=== PATIENT | female | born 1980 | race Caucasian/White ===

== ENCOUNTER 2022-11-05 20:42 | Inpatient (IN) | payer OTHER, SELFPAY ==
[2022-11-05 20:44] VITALS: BP 166/83; PULSE 91; RESP 18; TEMP 37; O2SAT 99; BMI 22.6
--- NOTE | 2022-11-05 20:47 | ED.GENADULT ---
HPI - General Adult General Chief complaint: Psychiatric Symptoms Stated complaint: SI/seeking help Time Seen by Provider: 11/05/22 22:01 Source: patient Mode of arrival: ambulatory Limitations: no limitations History of Present Illness HPI narrative: Patient with history of depression on gabapentin and Zoloft been depressed lately more than usual no significant triggering factor feels suicidal with a plan to cut herself or hang herself. No history of substance abuse except THC , Related Data Home Medications Medication Instructions Recorded Confirmed clonazepam 1 mg tablet 1 mg PO BID PRN Anxiety 11/05/22 11/05/22 gabapentin 800 mg tablet 800 mg PO TID 11/05/22 11/05/22 prazosin 2 mg capsule 6 mg PO BEDTIME 11/05/22 11/05/22 sertraline 100 mg tablet 200 mg PO QAM 11/05/22 11/05/22 Allergies Allergy/AdvReac Type Severity Reaction Status Date / Time levofloxacin [From Levaquin] Allergy Unknown Swelling Verified 06/01/22 16:03 Review of Systems Review of Systems: Yes all other systems are reviewed and are negative [facility] Past Medical History Medical History (Updated 11/08/22 @ 22:10 by Magalis Moon APRN) PTSD (post-traumatic stress disorder) Social History Social History Household Members: Family Housing: House Do you presently have visiting nurse or other home services: No Patient Tobacco Use Status: Current everyday Tobacco user Tobacco use type: Cigarette Cigarette Packs Per Day: 0.25 Cigarettes Per Day: 5.0 Years Smoked: 22 Smoked in Last 30 Days: Yes e-Cigarette/Vaping Use: Never Used Patient Interested in Nicotine Replacement: Yes Patient Given Instructions on How to Stop Smoking: Yes Date Education Initiated: 11/06/22 Second Hand Smoke Exposure: No Use of substances other than those prescribed or required for medical reasons: Yes Substance Use Type: Marijuana and Caffiene Substance Use Frequency: Daily Last Used Substance: Just Prior to Admission Currently Displaying Signs/Symptoms of Drug Intoxication Withdrawal: No Any prior treatment program specific to substance use: No Have you been hit, kicked, punched, or otherwise hurt by someone within the past year? If so, by whom?: No Do you feel safe in your current relationship?: No Current Relationship Is there a partner from a previous relationship who is making you feel unsafe now?: No Are you made to feel afraid or neglected: Yes (Made to feel lesser than by my Mother) Spiritual Healthcare Practices: none Jew Healthcare Practices: none Cultural Healthcare Practices: none Advance Directives: No Advance Directives Information Provided: Yes Healthcare Proxy: No Guardian: No Do you have thoughts of harming others: None Do you have a plan to hurt others: No Plan Recently lost weight without trying: No Eating poorly because of decreased appetite: No Nutrition Risks: No Nutritional Risk Patient : No : No Poor oral hygiene: No service: No Sexual orientation: Straight/Heterosexual Physical Exam ED Vital Signs: Vital Signs - 24 hr 11/05/22 20:44 11/06/22 06:29 Temperature 98.6 F 98.6 F Pulse Rate 91 53 Respiratory Rate 18 15 Blood Pressure 166/83 H 101/64 Pulse Oximetry 99 96 Oxygen Delivery Method Room Air Room Air BMI result Body Mass Index 22.6 Appearance: Alert. Oriented X3. No acute distress. Eyes: PERRLA, No Nystagmus ENT: Pharynx normal. Oral Mucosa moist Neck: Normal inspection. Neck supple. CVS: Normal heart rate and rhythm. Pulses normal. Respiratory: No respiratory distress. Equal air entry bilateral, no wheezing/rales/rhonchi Abdomen: Soft and nontender. Bowel sounds are present, no mass palpable, no CVA tenderness Skin: Skin warm and dry. Normal skin color. Normal skin turgor. Extremities: No lower extremity edema. No calf tenderness psych: Depressed tearful anxious feels suicidal no hallucinations or delusion Neuro: Oriented X 3. No motor deficit. No sensory deficit.No cerebellar signs , cranial nerves II-XII intact Course Course Course Narrative: RME: 42 yold female presents to the ED SUicidal ideation and plan to hang herself. patient is depressed. labs and consult care team placed. Reevaluation(s) Reevaluation #1: Patient is pending care team evaluation. He she has suicidal ideation with a plan to hang herself. She tested positive for THC. Medical reconciliation has been performed in ordered medications. Patient will remain in physician observation. Time: 08:07 Medications Administered Generic Name Dose Route Start Last Admin Trade Name Freq PRN Reason Stop Dose Admin Acetaminophen 650 mg 11/06/22 20:02 11/12/22 20:21 Acetaminophen 325 Mg Tablet PO 650 mg Q6H PRN Administration Headache/Pain Mild Scale (1-3) Aripiprazole 2 mg 11/08/22 09:00 11/14/22 09:22 Aripiprazole 2 Mg Tablet PO 2 mg DAILY COREEN Administration Bisacodyl 10 mg 11/10/22 13:30 11/12/22 20:21 Bisacodyl 5 Mg Tablet.Dr PO 10 mg DAILY PRN Administration Constipation Clonazepam 0.5 mg 11/12/22 15:56 11/14/22 09:22 Clonazepam 0.5 Mg Tablet PO 0.5 mg BID PRN Administration Anxiety Docusate Sodium 100 mg 11/10/22 21:00 11/14/22 09:22 Docusate Sodium 100 Mg Capsule PO 100 mg BID COREEN Administration Gabapentin 800 mg 11/06/22 09:00 11/14/22 09:22 Gabapentin 400 Mg Capsule PO 800 mg TID COREEN Administration Hydroxyzine HCl 25 mg 11/06/22 20:02 11/10/22 18:14 Hydroxyzine Hcl 25 Mg Tablet PO 25 mg Q6H PRN Administration Anxiety Ibuprofen 800 mg 11/10/22 13:35 11/12/22 15:49 Ibuprofen 800 Mg Tablet PO 800 mg Q8H PRN Administration Pain, Mild (Pain Scale 1-3) Magnesium Hydroxide 30 ml 11/06/22 20:02 11/11/22 18:57 Milk Of Magnesia 30 Ml Oral.Susp PO 30 ml DAILY PRN Administration Constipation Nicotine 14 mg 11/08/22 09:00 11/14/22 10:56 Nicotine 14 Mg Patch.Td24 TRANSDERMA Not Given DAILY COREEN Nicotine Polacrilex 2 mg 11/07/22 12:26 11/14/22 00:35 Nicotine Polacrilex 2 Mg Gum BUCCAL 2 mg Q2H PRN Administration Nicotine Cravings Oxycodone HCl 5 mg 11/10/22 15:20 11/14/22 09:22 Oxycodone Hcl Immed Release 5 Mg Tablet PO 5 mg Q6H PRN Administration disc/back pain Prazosin HCl 6 mg 11/06/22 21:00 11/13/22 22:03 Prazosin Hcl 1 Mg Capsule PO 6 mg BEDTIME COREEN Administration Protocol Sertraline HCl 200 mg 11/06/22 09:00 11/14/22 09:22 Sertraline Hcl 100 Mg Tablet PO 200 mg DAILY COREEN Administration Trazodone HCl 100 mg 11/10/22 13:28 11/14/22 00:35 Trazodone Hcl 100 Mg Tablet PO 100 mg BEDTIME MRX1 PRN Administration Insomnia Discontinued Medications Generic Name Dose Route Start Last Admin Trade Name Freq PRN Reason Stop Dose Admin Clonazepam 1 mg 11/06/22 09:00 11/07/22 12:22 Clonazepam 1 Mg Tablet PO 1 mg BID PRN Administration Anxiety Clonazepam 0.5 mg 11/07/22 14:32 11/12/22 14:00 Clonazepam 0.5 Mg Tablet PO 0.5 mg BID PRN Administration Anxiety Lorazepam 2 mg 11/05/22 22:22 11/05/22 22:33 Lorazepam 1 Mg Tablet PO 11/05/22 22:23 2 mg ONCE ONE Administration Trazodone HCl 50 mg 11/06/22 20:02 11/09/22 21:49 Trazodone Hcl 50 Mg Tablet PO 50 mg BEDTIME MRX1 PRN Administration Insomnia Medical Decision Making Medical Decision Making MDM Narrative: Patient has significant depression and suicidal ideation with plan will get care team consult plan for inpatient psych admission Lab Data MDM Lab Attestation statement: I reviewed the patient's lab results. 11/05/22 22:12 11/05/22 22:12 Labs: Lab Results 11/05/22 11/05/22 11/05/22 Range/Units 22:12 22:12 22:12 WBC 9.1 (4.8-10.8) X10*3/uL RBC 4.66 (4.20-5.50) X10*6/uL Hgb 12.7 (12.0-16.0) g/dl Hct 38.4 (37.0-47.0) % MCV 82.4 (80.0-98.0) fL MCH 27.3 (27.0-33.0) pg MCHC 33.1 (31.0-35.0) g/dl RDW 13.0 (11.0-16.0) % Plt Count 283 (160-400) X10*3/uL MPV 11.3 (9.4-12.3) fL Immature Gran % (Auto) 0.2 (0.0-0.4) % Neut % (Auto) 60.2 (45-73) % Lymph % (Auto) 29.3 (20-40) % Brooks % (Auto) 6.9 (2-11) % Eos % (Auto) 2.6 (0-4) % Baso % (Auto) 0.8 (0-2) % Lymph # (Auto) 2.7 (1.2-4.9) X10*3/uL Brooks # (Auto) 0.6 (0.1-1.2) X10*3/uL Eos # (Auto) 0.2 (0.0-0.4) X10*3/uL Baso # (Auto) 0.1 (0.0-0.2) X10*3/uL Abs Immat Gran (auto) 0.02 (0.00-0.03) X10*3/uL Absolute Neuts (auto) 5.5 (2.0-8.3) x10*3/uL Absolute Nucleated RBC 0.000 (0.0-0.012) X10*3/uL Nucleated RBC % (auto) 0.0 (0.0-0.2) /100WBC Sodium 137 (135-145) mmol/L Potassium 3.7 (3.3-5.1) mmol/L Chloride 102 (96-108) mmol/L Carbon Dioxide 25 (22-29) mmol/L Anion Gap 14 (12-20) BUN 7 L (9-16) mg/dL Creatinine 0.80 (0.5-1.4) mg/dL Estim Creat Clear Calc 87.5 Estimated GFR > 60 Random Glucose 86 (60-115) mg/dL Calcium 9.6 (8.4-10.2) mg/dL Total Bilirubin 0.5 (0.0-1.0) mg/dL AST 18 (5-31) U/L ALT 15 (0-31) U/L Alkaline Phosphatase 62 (39-117) U/L Total Protein 6.8 (6.5-8.0) g/dL Albumin 4.5 (3.5-5.0) g/dL Urine Color Urine Appearance Urine pH (5.0-9.0) Ur Specific Zanoni (1.005-1.025) Urine Protein (Neg-Trace) mg/dL Urine Glucose (UA) (Negative) mg/dL Urine Ketones (Negative) mg/dL Urine Blood (Negative) Urine Nitrite (Negative) Ur Leukocyte Esterase (Negative) Urine Test (NEGATIVE) Salicylates < 5.0 L (15-30) mg/dL Urine Opiates Screen (Not Detect) Urine Fentanyl Screen (Not Detect) Acetaminophen < 17 (<30) mcg/mL Ur Barbiturates Screen (Not Detect) Ur Phencyclidine Scrn (Not Detect) Ur Amphetamines Screen (Not Detect) U Benzodiazepines Scrn (Not Detect) Urine Cocaine Screen (Not Detect) U Marijuana (THC) Screen (Not Detect) Ethyl Alcohol < 10 mg/dL COVID-19 ([facility]) (Negative) COVID-19 Clin Com 11/05/22 11/05/22 11/05/22 Range/Units 22:12 22:12 22:12 WBC (4.8-10.8) X10*3/uL RBC (4.20-5.50) X10*6/uL Hgb (12.0-16.0) g/dl Hct (37.0-47.0) % MCV (80.0-98.0) fL MCH (27.0-33.0) pg MCHC (31.0-35.0) g/dl RDW (11.0-16.0) % Plt Count (160-400) X10*3/uL MPV (9.4-12.3) fL Immature Gran % (Auto) (0.0-0.4) % Neut % (Auto) (45-73) % Lymph % (Auto) (20-40) % Brooks % (Auto) (2-11) % Eos % (Auto) (0-4) % Baso % (Auto) (0-2) % Lymph # (Auto) (1.2-4.9) X10*3/uL Brooks # (Auto) (0.1-1.2) X10*3/uL Eos # (Auto) (0.0-0.4) X10*3/uL Baso # (Auto) (0.0-0.2) X10*3/uL Abs Immat Gran (auto) (0.00-0.03) X10*3/uL Absolute Neuts (auto) (2.0-8.3) x10*3/uL Absolute Nucleated RBC (0.0-0.012) X10*3/uL Nucleated RBC % (auto) (0.0-0.2) /100WBC Sodium (135-145) mmol/L Potassium (3.3-5.1) mmol/L Chloride (96-108) mmol/L Carbon Dioxide (22-29) mmol/L Anion Gap (12-20) BUN (9-16) mg/dL Creatinine (0.5-1.4) mg/dL Estim Creat Clear Calc Estimated GFR Random Glucose (60-115) mg/dL Calcium (8.4-10.2) mg/dL Total Bilirubin (0.0-1.0) mg/dL AST (5-31) U/L ALT (0-31) U/L Alkaline Phosphatase (39-117) U/L Total Protein (6.5-8.0) g/dL Albumin (3.5-5.0) g/dL Urine Color Yellow Urine Appearance Clear Urine pH 7.0 (5.0-9.0) Ur Specific Zanoni 1.010 (1.005-1.025) Urine Protein Negative (Neg-Trace) mg/dL Urine Glucose (UA) Negative (Negative) mg/dL Urine Ketones Negative (Negative) mg/dL Urine Blood Negative (Negative) Urine Nitrite Negative (Negative) Ur Leukocyte Esterase Negative (Negative) Urine Test NEGATIVE (NEGATIVE) Salicylates (15-30) mg/dL Urine Opiates Screen Not Detected (Not Detect) Urine Fentanyl Screen Not Detected (Not Detect) Acetaminophen (<30) mcg/mL Ur Barbiturates Screen Not Detected (Not Detect) Ur Phencyclidine Scrn Not Detected (Not Detect) Ur Amphetamines Screen Not Detected (Not Detect) U Benzodiazepines Scrn Not Detected (Not Detect) Urine Cocaine Screen Not Detected (Not Detect) U Marijuana (THC) Screen POSITIVE H (Not Detect) Ethyl Alcohol mg/dL COVID-19 ([facility]) (Negative) COVID-19 Clin Com 11/06/22 Range/Units 13:21 WBC (4.8-10.8) X10*3/uL RBC (4.20-5.50) X10*6/uL Hgb (12.0-16.0) g/dl Hct (37.0-47.0) % MCV (80.0-98.0) fL MCH (27.0-33.0) pg MCHC (31.0-35.0) g/dl RDW (11.0-16.0) % Plt Count (160-400) X10*3/uL MPV (9.4-12.3) fL Immature Gran % (Auto) (0.0-0.4) % Neut % (Auto) (45-73) % Lymph % (Auto) (20-40) % Brooks % (Auto) (2-11) % Eos % (Auto) (0-4) % Baso % (Auto) (0-2) % Lymph # (Auto) (1.2-4.9) X10*3/uL Brooks # (Auto) (0.1-1.2) X10*3/uL Eos # (Auto) (0.0-0.4) X10*3/uL Baso # (Auto) (0.0-0.2) X10*3/uL Abs Immat Gran (auto) (0.00-0.03) X10*3/uL Absolute Neuts (auto) (2.0-8.3) x10*3/uL Absolute Nucleated RBC (0.0-0.012) X10*3/uL Nucleated RBC % (auto) (0.0-0.2) /100WBC Sodium (135-145) mmol/L Potassium (3.3-5.1) mmol/L Chloride (96-108) mmol/L Carbon Dioxide (22-29) mmol/L Anion Gap (12-20) BUN (9-16) mg/dL Creatinine (0.5-1.4) mg/dL Estim Creat Clear Calc Estimated GFR Random Glucose (60-115) mg/dL Calcium (8.4-10.2) mg/dL Total Bilirubin (0.0-1.0) mg/dL AST (5-31) U/L ALT (0-31) U/L Alkaline Phosphatase (39-117) U/L Total Protein (6.5-8.0) g/dL Albumin (3.5-5.0) g/dL Urine Color Urine Appearance Urine pH (5.0-9.0) Ur Specific Zanoni (1.005-1.025) Urine Protein (Neg-Trace) mg/dL Urine Glucose (UA) (Negative) mg/dL Urine Ketones (Negative) mg/dL Urine Blood (Negative) Urine Nitrite (Negative) Ur Leukocyte Esterase (Negative) Urine Test (NEGATIVE) Salicylates (15-30) mg/dL Urine Opiates Screen (Not Detect) Urine Fentanyl Screen (Not Detect) Acetaminophen (<30) mcg/mL Ur Barbiturates Screen (Not Detect) Ur Phencyclidine Scrn (Not Detect) Ur Amphetamines Screen (Not Detect) U Benzodiazepines Scrn (Not Detect) Urine Cocaine Screen (Not Detect) U Marijuana (THC) Screen (Not Detect) Ethyl Alcohol mg/dL COVID-19 ([facility]) Negative (Negative) COVID-19 Clin Com See Note Discharge Plan Discharge Clinical Impression: Depression, Suicidal ideation Patient Disposition: Still a Patient Interventions: Admission Worksheet (ED) Last Done: 11/06/22 20:40 Discharge Date/Time: 11/06/22 20:41
[2022-11-05 22:50] LABS: Alanine Aminotransferase 15 U/L (0-31); Albumin Level 4.5 g/dL (3.5-5.0); Alkaline Phosphatase 62 U/L (39-117); Anion Gap 14 (12-20); Aspartate Amino Transferase 18 U/L (5-31); Bilirubin Total 0.5 mg/dL (0.0-1.0); Blood Urea Nitrogen 7 mg/dL (9-16); Calcium 9.6 mg/dL (8.4-10.2); Carbon Dioxide 25 mmol/L (22-29); Chloride 102 mmol/L (96-108); Creatinine Clr Calc Pharmacy 87.5; Estimated Glomerular Filt Rate > 60; Ethanol < 10 mg/dL; Glucose Random 86 mg/dL (60-115); Potassium 3.7 mmol/L (3.3-5.1); Sodium 137 mmol/L (135-145); Total Protein 6.8 g/dL (6.5-8.0)
--- NOTE | 2022-11-06 06:28 | PC.NURSE ---
Patient slept through the night, + effect from Ativan 2 mg administered at 2233, no distress observed/reported, mood depressed and tearful, affect congruent to mood, med rec completed/pending provider's approval, care consult ordered/pending evaluation will continue to monitor.
[2022-11-06 06:29] VITALS: BP 101/64; PULSE 53; RESP 15; TEMP 37; O2SAT 96
--- NOTE | 2022-11-06 07:32 | PC.NURSE ---
PT UP TO BR. AWAITING CARE TEAM EVAL. NO C/O
[2022-11-06] MEDS: Sertraline HCL 100 MG TABLET 200 MG PO (09:12)
[2022-11-06] MEDS: Gabapentin 400 MG CAPSULE 800 MG PO ×2 (09:12→16:29)
--- NOTE | 2022-11-06 10:16 | MHC.CARE ---
Patient evaluated by the CARE Team and will require an inpatient psychiatric admission, she is in agreement with this plan. Provider updated. Written assessment to follow.
--- NOTE | 2022-11-06 12:13 | PC.NURSE ---
OUT TO NURSES STATION, TEARFUL. AWARE FOR PLAN TO GO TO [facility] LATER TODAY
[2022-11-06] MEDS: clonazePAM 1 MG TABLET PO (18:05)
[2022-11-06 19:44] VITALS: BP 123/67; PULSE 66; RESP 20; TEMP 37.3; O2SAT 100
[2022-11-06 22:30] VITALS: BP 123/73; PULSE 48; RESP 16; TEMP 36.3; O2SAT 96
--- NOTE | 2022-11-06 22:38 | ECG_ITS ---
Test Reason : HEART RATE 48, PATIENT ON PSYCH MEDICATIONS Blood Pressure : / mmHG Vent. Rate : 043 BPM Atrial Rate : 043 BPM P-R Int : 136 ms QRS Dur : 092 ms QT Int : 490 ms P-R-T Axes : -13 067 047 degrees QTc Int : 414 ms Marked sinus bradycardia Abnormal ECG No previous ECGs available Referred By: Magalis Moon Electronically Signed By:LEANA JULIAN MD
--- NOTE | 2022-11-06 23:56 | PC.ADMIT ---
Patient is a 42 year old single Nepali speaking female admitted as a CV admission to at 2030 and placed on 15 minute safety checks. Patient was medically cleared in the [facility], evaluated by the CARE team and deemed in need of IPLOC secondary to severe depression and anxiety with SI to cut herself or hang herself. Patient has no previous inpatient admissions for psychiatric reasons, no current medical issues. Patient was cooperative during the admission process and slightly tearful. She denied any current SI, no HI, AH or VH. She is anxious about having the chronic SI feelings prior to admission and was relieved to be admitted. Patient was noted to have a low HR of 48 and Padmini Valdez, animal control supervisor provider notified and hospitalist consult was put in as well as a STAT EKG. Dr. London, hospitalist, notified and both providers were sent a picture of the EKG. Gabapentin and Prazosin held and Padmini Valdez aware. Patient said that she is not on any new medications and is not athletic. Patient will be reviewed in the morning and may have a cardiology consult. Patient aware meds held.
--- NOTE | 2022-11-07 | ECG_ITS ---
Test Reason : bradycardia Blood Pressure : / mmHG Vent. Rate : 053 BPM Atrial Rate : 053 BPM P-R Int : 112 ms QRS Dur : 090 ms QT Int : 430 ms P-R-T Axes : 003 070 025 degrees QTc Int : 403 ms Sinus bradycardia Otherwise normal ECG When compared with ECG of 06-NOV-2022 22:52, No significant change was found Referred By: Magalis Moon Electronically Signed By:LEANA JULIAN MD
[2022-11-07] MEDS: Sertraline HCL 100 MG TABLET 200 MG PO (08:30)
[2022-11-07] MEDS: Gabapentin 400 MG CAPSULE 800 MG PO ×3 (08:30→20:30)
[2022-11-07 08:42] VITALS: BP 104/64; PULSE 60; RESP 16; TEMP 36.8; O2SAT 97
--- NOTE | 2022-11-07 09:41 | MHC.CARE ---
[facility] authorization By Angle Nicole [id number] 11/06-11/09
[2022-11-07 10:14] LABS: Estimated Average Glucose 97 mg/dL
[2022-11-07 10:48] LABS: Cholesterol 175 mg/dL; HDL Cholesterol 44 mg/dL; LDL Cholesterol Calculated 113 mg/dl; Magnesium 2.2 mg/dL (1.6-2.6); Triglycerides 90 mg/dL
[2022-11-07 10:57] LABS: Free T4 (Free Thyroxine) 0.81 ng/dL (0.71-1.85); Thyroid Stimulating Hormone 1.69 uIU/mL (0.32-4.0)
[2022-11-07 11:00] LABS: Folate 11.6 ng/mL (> or = 4.0); Vitamin B12 701 pg/mL (200-900)
[2022-11-07] MEDS: clonazePAM 1 MG TABLET PO (12:22)
--- NOTE | 2022-11-07 13:09 | P.EN_ITS ---
Event Note Date of Service: 11/07/22 Event Note: Pt seen and examined. Consult placed for evaluation of sinus bradycardia on admission. EKG on admission showed sinus bradycardia, rate 43, no AV blocks appreciated. Pt is not on any AV judith blockers. She reports she was very sedentary in the ED and is now moving more around the unit. HR this am on unit was 60, and on my exam 66. She reports lightheadedness and sob only when anxious but is otherwise asymptomatic. At this time, no intervention is required. Cont inue monitoring VS. Would recommend psychiatric medication adjustment as appropriate per psychiatry if bradycardia persists. Time Spent With Patient Time: Total time managing care of this patient today ____ minutes.
[2022-11-07] MEDS: Nicotine Polacrilex 2 MG GUM BUCCAL ×2 (13:28→20:31)
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
[2022-11-07 16:19] VITALS: BP 122/55; PULSE 61; RESP 16; TEMP 36.8; O2SAT 98
[2022-11-07] MEDS: clonazePAM 0.5 MG TABLET PO (20:31)
[2022-11-07] MEDS: traZODone HCL 50 MG TABLET PO (20:31)
[2022-11-07 22:15] VITALS: BP 133/90; PULSE 82; RESP 18; TEMP 36.1; O2SAT 97
[2022-11-07] MEDS: Prazosin HCL 1 MG CAPSULE 6 MG PO (22:25)
[2022-11-08] MEDS: Gabapentin 400 MG CAPSULE 800 MG PO ×3 (08:31→20:33)
[2022-11-08] MEDS: Sertraline HCL 100 MG TABLET 200 MG PO (08:31)
[2022-11-08] MEDS: ARIPiprazole 2 MG TABLET PO (08:31)
[2022-11-08 09:00] VITALS: BP 107/61; PULSE 76; RESP 16; TEMP 36.6; O2SAT 97
[2022-11-08] MEDS: Nicotine Polacrilex 2 MG GUM BUCCAL ×4 (11:05→20:53)
--- NOTE | 2022-11-08 12:22 | P.PNPSI_ITS ---
Subjective Subjective Date of Service: 11/08/22 Reason For Visit: Depression with SI Subjective Notes: Conditional Voluntary Healthcare Proxy: No Guardianship: No Medical Problems Affecting Mental Status: No Interim History: Pt reports some improvement in sleep. Discussed attending [facility] which she is interested in. Family meeting scheduled for 11/09/22. Tolerating a.m. Abilify augmentation. Medication Compliance: Yes Side effects from medications: No Attending Groups: Intermittent Review of Systems Acute medical concerns: No Medical Review of Systems: unchanged Mental Status Exam Mental Status Exam Patient Appearance: Appropriate Patient Orientation: Person, Place, Time and Situation Level of Consciousness: Alert Patient Behavior: Appropriate, Talkative and Good Eye Contact Mood Description: Depressed and Anxious Affect Description: Flat Patient Cognition Impaired: No Ability to Follow Directions: Good Speech Pattern: Spontaneous Speech Memory Description: Intact Hallucinations: None Delusions: Not Present Perceptual Disturbances: Depersonalization and Derealization Thought Process: Distracted and Rumination Thought Content: positive for Circumstantial and positive for Perseveration Depressive Symptoms: Increased Anxiety, Difficulty Sleeping, Crying Spells, Feelings of Worthlessness, Hopelessness, Isolating-Friends/Family, Feelings of Guilt, Unhappiness, Increased Fatigue, Low Self Esteem, Loss of Energy, Difficulty Concentrating and Back Pain Judgement: Good Diagnostics Vital Signs (24Hr): Vital Signs - 24 hr 11/07/22 16:19 11/07/22 22:15 11/08/22 09:00 Temperature 98.2 F 97 F 98 F Pulse Rate 61 82 76 Respiratory Rate 16 18 16 Blood Pressure 122/55 L 133/90 H 107/61 Pulse Oximetry 98 97 97 Oxygen Delivery Method Room Air Room Air BMI result Body Mass Index 22.6 Labs 11/05/22 22:12 11/05/22 22:12 Labs: Laboratory Results - last 48 hr 11/06/22 11/07/22 11/07/22 13:21 09:07 09:07 Estimat Average Glucose 97 Hemoglobin A1c % 5.0 Magnesium 2.2 Triglycerides 90 Cholesterol 175 LDL Cholesterol, Calc 113 HDL Cholesterol 44 Vitamin B12 Folate TSH 1.69 Free T4 0.81 COVID-19 ([facility]) Negative COVID-19 Clin Com See Note 11/07/22 09:07 Estimat Average Glucose Hemoglobin A1c % Magnesium Triglycerides Cholesterol LDL Cholesterol, Calc HDL Cholesterol Vitamin B12 701 Folate 11.6 TSH Free T4 COVID-19 ([facility]) COVID-19 Clin Com Medications Medications Current Medications Acetaminophen (Acetaminophen 325 Mg Tablet) 650 mg PO Q6H PRN PRN Reason: Headache/Pain Mild Scale (1-3) Al Hydroxide/Mg Hydroxide (Magnesium Hydrox/Alum Hydrox 30 Ml Oral.Susp) 30 ml PO Q6H PRN PRN Reason: Heartburn/Nausea Aripiprazole (Aripiprazole 2 Mg Tablet) 2 mg PO DAILY [facility] Last Admin: 11/08/22 08:31 Dose: 2 mg Clonazepam (Clonazepam 0.5 Mg Tablet) 0.5 mg PO BID PRN PRN Reason: Anxiety Last Admin: 11/07/22 20:31 Dose: 0.5 mg Gabapentin (Gabapentin 400 Mg Capsule) 800 mg PO TID [facility] Last Admin: 11/08/22 08:31 Dose: 800 mg Hydroxyzine HCl (Hydroxyzine Hcl 25 Mg Tablet) 25 mg PO Q6H PRN PRN Reason: Anxiety Magnesium Hydroxide (Milk Of Magnesia 30 Ml Oral.Susp) 30 ml PO DAILY PRN PRN Reason: Constipation Nicotine (Nicotine 14 Mg Patch.Td24) 14 mg TRANSDERMA DAILY [facility] Last Admin: 11/08/22 09:48 Dose: Not Given Nicotine Polacrilex (Nicotine Polacrilex 2 Mg Gum) 2 mg BUCCAL Q2H PRN PRN Reason: Nicotine Cravings Last Admin: 11/08/22 11:05 Dose: 2 mg Prazosin HCl (Prazosin Hcl 1 Mg Capsule) 6 mg PO BEDTIME [facility]; Protocol Last Admin: 11/07/22 22:25 Dose: 6 mg Sertraline HCl (Sertraline Hcl 100 Mg Tablet) 200 mg PO DAILY [facility] Last Admin: 11/08/22 08:31 Dose: 200 mg Trazodone HCl (Trazodone Hcl 50 Mg Tablet) 50 mg PO BEDTIME MRX1 PRN PRN Reason: Insomnia Last Admin: 11/07/22 20:31 Dose: 50 mg Allergies Allergies Allergy/AdvReac Type Severity Reaction Status Date / Time levofloxacin [From Levaquin] Allergy Unknown Swelling Verified 06/01/22 16:03 Assessment & Plan Patient educated on: therapeutic strategies Informed Consent: understands and further education needed Reason for continued inpatient stay Substantial Risk for: harm to self and rapid decompensation Time Spent With Patient Time: Total time managing care of this patient today ____ minutes.
[2022-11-08] MEDS: clonazePAM 0.5 MG TABLET PO ×2 (14:05→20:33)
[2022-11-08 20:11] VITALS: BP 126/89; PULSE 106; TEMP 36.6
[2022-11-08 22:06] VITALS: BP 141/85; PULSE 95; TEMP 36.8
[2022-11-08] MEDS: Prazosin HCL 1 MG CAPSULE 6 MG PO (22:07)
[2022-11-08] MEDS: traZODone HCL 50 MG TABLET PO (22:08)
[2022-11-09] MEDS: traZODone HCL 50 MG TABLET PO ×2 (00:50→21:49)
[2022-11-09] MEDS: Acetaminophen 325 MG TABLET 650 MG PO ×3 (00:51→14:58)
[2022-11-09 07:00] VITALS: BMI 20.8
[2022-11-09 08:42] VITALS: BP 141/71; PULSE 73; RESP 16; TEMP 37; O2SAT 100
[2022-11-09] MEDS: ARIPiprazole 2 MG TABLET PO (08:47)
[2022-11-09] MEDS: Gabapentin 400 MG CAPSULE 800 MG PO ×3 (08:47→19:55)
[2022-11-09] MEDS: Sertraline HCL 100 MG TABLET 200 MG PO (08:47)
[2022-11-09] MEDS: Nicotine Polacrilex 2 MG GUM BUCCAL ×4 (09:27→19:56)
[2022-11-09] MEDS: clonazePAM 0.5 MG TABLET PO ×2 (10:32→19:56)
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
[2022-11-09] MEDS: Milk of Magnesia 30 ML ORAL.SUSP PO (14:57)
[2022-11-09 21:47] VITALS: BP 131/90; PULSE 85; TEMP 37.1
[2022-11-09] MEDS: Prazosin HCL 1 MG CAPSULE 6 MG PO (21:49)
[2022-11-10] MEDS: Gabapentin 400 MG CAPSULE 800 MG PO ×3 (08:11→20:16)
[2022-11-10] MEDS: Sertraline HCL 100 MG TABLET 200 MG PO (08:11)
[2022-11-10] MEDS: ARIPiprazole 2 MG TABLET PO (08:16)
[2022-11-10 08:23] VITALS: BP 122/82; PULSE 110; RESP 18; TEMP 36.5; O2SAT 96
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
[2022-11-10] MEDS: Nicotine Polacrilex 2 MG GUM BUCCAL ×4 (12:11→20:16)
[2022-11-10] MEDS: clonazePAM 0.5 MG TABLET PO ×2 (12:11→18:14)
[2022-11-10] MEDS: Ibuprofen 800 MG TABLET PO (13:43)
[2022-11-10] MEDS: hydrOXYzine HCL 25 MG TABLET PO (18:14)
[2022-11-10] MEDS: oxyCODONE HCl Immed Release 5 MG TABLET PO (20:16)
[2022-11-10] MEDS: Docusate Sodium 100 MG CAPSULE PO (20:16)
[2022-11-10 22:15] VITALS: BP 131/81; PULSE 73; TEMP 36.6
[2022-11-10] MEDS: traZODone HCL 100 MG TABLET PO (22:30)
[2022-11-10] MEDS: Prazosin HCL 1 MG CAPSULE 6 MG PO (22:30)
[2022-11-11 06:00] VITALS: BP 110/62; PULSE 96; RESP 16; TEMP 36.2; O2SAT 98
[2022-11-11] MEDS: Docusate Sodium 100 MG CAPSULE PO ×2 (08:44→18:58)
[2022-11-11] MEDS: Sertraline HCL 100 MG TABLET 200 MG PO (08:44)
[2022-11-11] MEDS: Gabapentin 400 MG CAPSULE 800 MG PO ×3 (08:44→22:59)
[2022-11-11] MEDS: ARIPiprazole 2 MG TABLET PO (08:44)
[2022-11-11] MEDS: Ibuprofen 800 MG TABLET PO ×2 (10:08→22:59)
[2022-11-11] MEDS: Nicotine Polacrilex 2 MG GUM BUCCAL ×3 (10:09→19:02)
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
[2022-11-11] MEDS: oxyCODONE HCl Immed Release 5 MG TABLET PO ×2 (12:12→22:59)
[2022-11-11] MEDS: clonazePAM 0.5 MG TABLET PO ×2 (13:22→18:57)
[2022-11-11] MEDS: bisacodyL 5 MG TABLET.DR 10 MG PO (18:57)
[2022-11-11] MEDS: Milk of Magnesia 30 ML ORAL.SUSP PO (18:57)
--- NOTE | 2022-11-11 20:28 | PC.NURSE ---
Patient stated she has been constipated x 7 days. Prn meds given with effect pending.
[2022-11-11 22:45] VITALS: BP 135/89; PULSE 92; TEMP 36.8; O2SAT 98
[2022-11-11] MEDS: Prazosin HCL 1 MG CAPSULE 6 MG PO (22:58)
[2022-11-11] MEDS: traZODone HCL 100 MG TABLET PO (22:59)
[2022-11-12 08:15] VITALS: BP 141/65; PULSE 80; RESP 16; TEMP 36.2; O2SAT 98
[2022-11-12] MEDS: Sertraline HCL 100 MG TABLET 200 MG PO (08:22)
[2022-11-12] MEDS: ARIPiprazole 2 MG TABLET PO (08:22)
[2022-11-12] MEDS: Gabapentin 400 MG CAPSULE 800 MG PO ×3 (08:22→20:20)
[2022-11-12] MEDS: Docusate Sodium 100 MG CAPSULE PO ×2 (08:23→20:21)
[2022-11-12] MEDS: Nicotine Polacrilex 2 MG GUM BUCCAL ×4 (10:25→20:21)
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
[2022-11-12] MEDS: clonazePAM 0.5 MG TABLET PO ×2 (14:00→20:20)
[2022-11-12] MEDS: Ibuprofen 800 MG TABLET PO (15:49)
[2022-11-12] MEDS: oxyCODONE HCl Immed Release 5 MG TABLET PO (15:53)
[2022-11-12] MEDS: bisacodyL 5 MG TABLET.DR 10 MG PO (20:21)
[2022-11-12] MEDS: Acetaminophen 325 MG TABLET 650 MG PO (20:21)
[2022-11-12] MEDS: Prazosin HCL 1 MG CAPSULE 6 MG PO (23:12)
[2022-11-12] MEDS: traZODone HCL 100 MG TABLET PO (23:12)
[2022-11-13 00:09] VITALS: BP 137/87; PULSE 84; RESP 18; TEMP 36.4; O2SAT 98
[2022-11-13 06:00] VITALS: BP 128/68; PULSE 68; RESP 16; TEMP 36.6; O2SAT 98
[2022-11-13] MEDS: Sertraline HCL 100 MG TABLET 200 MG PO (08:20)
[2022-11-13] MEDS: Gabapentin 400 MG CAPSULE 800 MG PO ×3 (08:31→22:03)
[2022-11-13] MEDS: Docusate Sodium 100 MG CAPSULE PO ×2 (08:32→22:03)
[2022-11-13] MEDS: ARIPiprazole 2 MG TABLET PO (08:32)
[2022-11-13] MEDS: Nicotine Polacrilex 2 MG GUM BUCCAL ×3 (11:28→21:10)
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
[2022-11-13] MEDS: oxyCODONE HCl Immed Release 5 MG TABLET PO (13:49)
[2022-11-13] MEDS: clonazePAM 0.5 MG TABLET PO ×2 (13:50→22:02)
[2022-11-13 22:00] VITALS: BP 137/84; PULSE 88; RESP 18; TEMP 37.1
[2022-11-13] MEDS: Prazosin HCL 1 MG CAPSULE 6 MG PO (22:03)
[2022-11-14] MEDS: traZODone HCL 100 MG TABLET PO ×2 (00:35→22:15)
[2022-11-14] MEDS: Nicotine Polacrilex 2 MG GUM BUCCAL ×3 (00:35→18:05)
[2022-11-14 06:00] VITALS: BP 123/92; PULSE 118; RESP 18; TEMP 36.7; O2SAT 99
[2022-11-14] MEDS: ARIPiprazole 2 MG TABLET PO (09:22)
[2022-11-14] MEDS: clonazePAM 0.5 MG TABLET PO ×2 (09:22→18:06)
[2022-11-14] MEDS: Sertraline HCL 100 MG TABLET 200 MG PO (09:22)
[2022-11-14] MEDS: Gabapentin 400 MG CAPSULE 800 MG PO ×3 (09:22→20:46)
[2022-11-14] MEDS: Docusate Sodium 100 MG CAPSULE PO ×2 (09:22→20:47)
[2022-11-14] MEDS: oxyCODONE HCl Immed Release 5 MG TABLET PO ×2 (09:22→14:47)
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
[2022-11-14 22:14] VITALS: BP 135/89; PULSE 77; RESP 18; TEMP 36.1; O2SAT 99
[2022-11-14] MEDS: Prazosin HCL 1 MG CAPSULE 6 MG PO (22:15)
[2022-11-15 08:31] VITALS: BP 115/72; PULSE 74; RESP 16; TEMP 36.9; O2SAT 99
[2022-11-15] MEDS: Sertraline HCL 100 MG TABLET 200 MG PO (08:38)
[2022-11-15] MEDS: Gabapentin 400 MG CAPSULE 800 MG PO ×2 (08:38→14:10)
[2022-11-15] MEDS: ARIPiprazole 2 MG TABLET PO (08:38)
[2022-11-15] MEDS: oxyCODONE HCl Immed Release 5 MG TABLET PO (08:45)
[2022-11-15] MEDS: Nicotine Polacrilex 2 MG GUM BUCCAL ×3 (09:56→16:54)
[2022-11-15] MEDS: clonazePAM 0.5 MG TABLET PO (12:40)
--- NOTE | 2022-11-15 17:27 | P.DS_ITS ---
DS: Providers Provider Date of Service: 11/15/22 Date of admission: 11/06/22 20:02 Date of discharge: 11/15/22 Primary care physician: Unknown Physician Admitting clinician: Magalis Moon Attending physician on admission: Tyrell Frye Consults: 11/06/22 23:12 Consult to Hospitalist Routine Comment: Consulting Provider: Hospitalist Reason For Exam: sinus bradycardia VR43 ER admit Attending physician on discharge: Tyrell Frye Discharging clinician: Magalis Moon DS: Diagnosis Discharge Diagnosis (1) PTSD (post-traumatic stress disorder): Status: Acute (2) Depression: Status: Acute DS: Medications Discharge Medications Home Medications: Home Medications Medication Instructions Recorded Confirmed clonazepam 1 mg tablet 1 mg PO BID PRN Anxiety 11/05/22 11/05/22 gabapentin 800 mg tablet 800 mg PO TID 11/05/22 11/05/22 prazosin 2 mg capsule 6 mg PO BEDTIME 11/05/22 11/05/22 sertraline 100 mg tablet 200 mg PO QAM 11/05/22 11/05/22 Previous Rx's Medication Instructions Recorded aripiprazole 2 mg tablet (Abilify) 2 mg PO DAILY #30 tabs 11/15/22 nicotine (polacrilex) 2 mg gum 2 mg buccal Q2H PRN Nicotine 11/15/22 Cravings #50 ea oxycodone 5 mg tablet 5 mg PO Q6H PRN disc/back pain #5 11/15/22 tabs trazodone 100 mg tablet 100 mg PO BEDTIME MRX1 PRN 11/15/22 Insomnia #60 tabs Mental Status Exam Mental Status Exam Patient Appearance: Appropriate Patient Orientation: Person, Place, Time and Situation Level of Consciousness: Alert Patient Behavior: Appropriate, Talkative, Cooperative and Good Eye Contact Mood Description: Anxious and Apprehensive Affect Description: Anxious and Apprehensive Patient Cognition Impaired: No Ability to Follow Directions: Good Speech Pattern: Spontaneous Speech Memory Description: Intact Hallucinations: None Delusions: Not Present Thought Process: Rumination and Goal Oriented Thought Content: positive for Circumstantial and positive for Suicidal Ideation (denies) Depressive Symptoms: Increased Anxiety Judgement: Good DS: Summary Hospital Course Hospital Course: Admission to adult psychiatry for exacerbation of PTSD, recurrent major depression, chronic pain. Pt reports increase stress living with her mother who is elderly with mental illness. Pt also reports difficulty with the of her sister in [place] in 2012. She has many questions about her and is unsure if others contributed to her . Pt reports isolation at home with some social anxiety. Medications were evaluated and adjusted. Pt found the milieu to be the most useful and will continue with partial hospital program upon discharge to continue her building of coping skills and processing issues which effect her daily life. Time spent discussing smoking cessation with patient: 3 to 10 minutes Status at Discharge Functional status at discharge: independent ambulation Overall status at discharge: patient is progressing back to baseline Time Spent with Patient Time attestation: Total time managing care of this patient today ____ minutes. Time spent: Greater than 30 minutes Discharge Plan Discharge Anticipated Discharge Date/Time: 11/15/22 18:00 Patient Disposition: Home, Self-Care Discharge Diagnosis: PTSD Recurrent Major Depression Referrals: [facility] Partial Hospitalization Program (PHP) [Other] - 12/13/22 8:00 am (Initial Intake for Partial Hospitalization Program Patient will be placed on cancellation lost and may be called should an earlier intake be available.) [facility] [Other] - 12/22/22 11:00 am (Hospital Discharge appointment with psychiatric medication provider. Appointment is in person at [facility]) Akosua Conte: [facility] [Other] - 11/16/22 1:00 pm (Hospital Discharge appointment with therapist. Appointment is by tele-health ) Conrad Santiago MD [Physician] - 12/15/22 11:00 am (in office) Discharge Medications: New nicotine (polacrilex) 2 mg Gum 2 mg buccal Q2H PRN (Reason: Nicotine Cravings) Qty: 50 0RF trazodone 100 mg Tablet 100 mg PO BEDTIME MRX1 PRN (Reason: Insomnia) Qty: 60 0RF oxycodone 5 mg Tablet 5 mg PO Q6H PRN (Reason: disc/back pain) Qty: 5 0RF Rx Instructions: Partial Fill upon patient request. aripiprazole [Abilify] 2 mg Tablet 2 mg PO DAILY Qty: 30 0RF Continued clonazepam 1 mg tablet 1 mg PO BID PRN (Reason: Anxiety) prazosin 2 mg capsule 6 mg PO BEDTIME sertraline 100 mg tablet 200 mg PO QAM gabapentin 800 mg tablet 800 mg PO TID Discharge Orders: Discharge Order (Routine); Ordered 11/15/22 Ordered By: Magalis Moon Diet: Advance to usual diet Activity on Discharge: As tolerated Stand Alone Forms: Patient Portal Discharge page, Community Support Care Plan Goals: Mood and Behavioral Stabilization Health Concerns: Mood and Behavioral Stabilization Plan of Treatment: Attend scheduled appointments Take medications as directed Attend Partial Hospitalization Program Assessment: Pt interviewed prior to discharge and found to be fully oriented and without SI/HI. Pt has insight and demonstrates good judgment in terms of wanting to pursue treatment. Pt is not in imminent risk of harm to self or others and has a safety plan that includes presenting to the closest ER or calling 911 if feeling unsafe. Pt has been observed closely by nursing and unit staff throughout admission. Pt has not engaged in any behaviors that suggest dangerousness to self or others and has demonstrated appropriate behaviors and impulse control. Discharge Date/Time: 11/15/22 19:15
== END 2022-11-15 19:15 | disposition home or self-care (01) | DRG 885 ==
LOC: HO.ED 11-06 08:07 → HO.PM5 11-06 20:20
PROVIDERS: Physician Assistant; Admitting Provider Clinical Nurse Specialist Psychiatric/Mental Health, Adult; Emergency Provider Internal Medicine; Visit Provider Clinical Nurse Specialist Psychiatric/Mental Health, Adult
DX: F33.9 Major depressive disorder, recurrent, unspecified (principal); R45.851 Suicidal ideations; F43.10 Post-traumatic stress disorder, unspecified; R00.1 Bradycardia, unspecified; F17.210 Nicotine dependence, cigarettes, uncomplicated; Z71.6 Tobacco abuse counseling; Z20.822 Contact with and (suspected) exposure to COVID-19; Z79.899 Other long term (current) drug therapy
CPT/HCPCS: 36415; 80053; 80061; 80143; 80179; 80307; 81003; 81025; 82607; 82746; 83036; 83735; 84439; 84443; 85025; 87635; 93005; 99285; S9485

== ENCOUNTER 2022-11-06 20:02 | Outpatient (BNV) | payer OTHER, SELFPAY | END 2022-11-06 22:38 | PROVIDERS: Admitting Provider Clinical Nurse Specialist Psychiatric/Mental Health, Adult; Emergency Provider Internal Medicine; Visit Provider Internal Medicine Cardiovascular Disease | DX: R00.1 Bradycardia, unspecified (principal); R94.31 Abnormal electrocardiogram [ECG] [EKG] | CPT/HCPCS: 93010 ==

== ENCOUNTER 2022-11-06 20:02 | Outpatient (BNV) | payer OTHER, SELFPAY | END 2022-11-07 15:12 | PROVIDERS: Admitting Provider Clinical Nurse Specialist Psychiatric/Mental Health, Adult; Emergency Provider Internal Medicine; Visit Provider Internal Medicine Cardiovascular Disease | DX: R00.1 Bradycardia, unspecified (principal) | CPT/HCPCS: 93010 ==

== ENCOUNTER → 2022-11-06 20:02 | Outpatient (BNV) | payer OTHER, SELFPAY | PROVIDERS: Admitting Provider Clinical Nurse Specialist Psychiatric/Mental Health, Adult; Emergency Provider Internal Medicine; Visit Provider Clinical Nurse Specialist Psychiatric/Mental Health, Adult | DX: F43.11 Post-traumatic stress disorder, acute (principal); F33.2 Major depressive disorder, recurrent severe without psychotic features | CPT/HCPCS: 90792; 99231; 99232; 99239 ==

== ENCOUNTER 2022-12-14 11:00 | Outpatient (RCR) | payer OTHER, SELFPAY ==
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
--- NOTE | 2022-12-14 16:02 | HO.PHP ---
The client requested to leave after the first group. She met with staff and stated that it was too overwhelming and requests discharge. She states that she does have outpatient providers and she is safe.
== END 2022-12-14 23:59 | disposition home or self-care (01) ==
LOC: HO.PHPA 11:00
PROVIDERS: Visit Provider Psychiatry & Neurology Psychiatry
DX: F33.1 Major depressive disorder, recurrent, moderate (principal); F43.10 Post-traumatic stress disorder, unspecified
CPT/HCPCS: 90791; 90853